=== PATIENT | male | born 1990 | race Caucasian/White ===

== ENCOUNTER 2019-03-02 15:25 | Emergency (ER) | payer OTHER ==
[~2019-03-02] VITALS: Ht 195.6 cm; Wt 140.0 kg
[2019-03-02 15:28] VITALS: BP 128/95
[2019-03-02] MEDS ORDERED: RABIES VACCINE /PF 2.5 UNITS IM-VACC ONE (15:30)
== END 2019-03-02 16:34 | disposition home or self-care (01) ==
LOC: ED 16:28
DX: S61.051A Open bite of right thumb without damage to nail, initial encounter (principal); Z20.3 Contact with and (suspected) exposure to rabies; F17.210 Nicotine dependence, cigarettes, uncomplicated; W55.01XA Bitten by cat, initial encounter; Y93.89 Activity, other specified; Y92.009 Unspecified place in unspecified non-institutional (private) residence as the place of occurrence of the external cause; Y99.8 Other external cause status
CPT/HCPCS: 90471; 90675